=== PATIENT | male | born 1975 | race Caucasian/White ===

== ENCOUNTER → 2020-02-02 | Outpatient (CLI) | payer BC | END | disposition home or self-care (01) | LOC: LABWHC1 11:23 | PROVIDERS: ATTEND Emergency Medicine | DX: Z20.828 Contact with and (suspected) exposure to other viral communicable diseases (principal) | CPT/HCPCS: U0003; C9803 ==

== ENCOUNTER → 2021-10-15 | Outpatient (CLI) | payer BC ==
--- NOTE | 2021-10-15 21:16 | CT ---
EXAMINATION TYPE: CT abdomen pelvis wo con DATE OF EXAM: 10/15/2021 COMPARISON: CT dated 09/11/2011 HISTORY: left flank pain CT DLP: 1619 mGycm Automated exposure control for dose reduction was used. TECHNIQUE: Helical acquisition of images was performed from the lung bases through the pelvis. FINDINGS: LUNG BASES: No significant abnormality is appreciated. LIVER/GB: Enlarged liver measuring 23.6 cm with signs of hepatic steatosis. No definite hepatic focal lesion by this unenhanced CT scan. Unremarkable gallbladder. PANCREAS: No significant abnormality is seen. SPLEEN: No significant abnormality is seen. ADRENALS: No significant abnormality is seen. KIDNEYS: 7 mm obstructing stone is seen at the mid to lower portion of the left ureter causing proxim al left-sided hydroureter and hydronephrosis with left periureteric and left perinephric fat strandin g. Multiple bilateral millimetric nonobstructing renal calculi measuring up to 5 mm. No right-sided h ydroureter or hydronephrosis. Grossly unremarkable urinary bladder. Unremarkable prostate and seminal vesicles. FREE AIR: No free air is visualized RETROPERITONEAL ADENOPATHY: None visualized PELVIC ADENOPATHY: No pathologically enlarged lymph nodes. OSSEOUS STRUCTURES: No aggressive bone lesion. BOWEL: No significant abnormality is seen. OTHER: Scattered arterial atherosclerotic calcifications. No sizable ascites. Left fat-containing ing uinal hernia. IMPRESSION: 7 mm obstructing stone is seen at the mid to lower portion of the left ureter. Associated infection c annot be excluded, please correlate clinically and with urinalysis results. Further urology consultat ion can be considered. Bilateral nonobstructing renal calculi and other incidental findings as descri bed above. A [place] level critical message alert has been initiated for Toby Luciano MD via the [facility] Critical Results System on 10/15/2021 9:13 PM. This message alert has been sent to Toby Luciano MD via the preferences provided by the clinician for the receipt of Radiology Critical Findings. Message ID [id number].
== END | disposition home or self-care (01) ==
LOC: RADCTMAIN 15:49
PROVIDERS: ATTEND Family Medicine
DX: N20.2 Calculus of kidney with calculus of ureter (principal)
CPT/HCPCS: 74176

== ENCOUNTER → 2021-10-16 | Outpatient (CLI) | payer BC ==
--- NOTE | 2021-10-16 12:00 | XR ---
EXAMINATION TYPE: XR KUB DATE OF EXAM: 10/16/2021 COMPARISON: CT scan 10/15/2021 HISTORY: Pain TECHNIQUE: One view abdominal series FINDINGS: The osseous structures are intact. The bowel gas pattern is nonspecific. Right kidney: Question 2 mm punctate calcification overlying the lower Left kidney approximately 4 calcifications overlying the mid and lower aspect and additional calcific ation overlying the 12th rib near the mid to upper pole. Largest measures 4 mm. Pelvis: There are multiple calculi in the pelvis which are nonspecific. 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 Hypertrophic degenerative change of the spine. A 7 mm left u pper hemipelvis calcification likely corresponds to the CT ureteral stone. IMPRESSION: 1. Bilateral medical devices as discussed above. 2. Numerous nonspecific calcifications in the lower pelvis. However, there is a 7 mm calcification in the left upper pelvis likely corresponds to the CT scan abnormality and ureteral calculus.
== END | disposition home or self-care (01) ==
LOC: RADXRMAIN 11:43
PROVIDERS: ATTEND Urology
DX: N20.1 Calculus of ureter (principal)
CPT/HCPCS: 74018

== ENCOUNTER → 2021-11-01 | Outpatient (CLI) | payer BC ==
--- NOTE | 2021-11-01 08:30 | XR ---
KUB HISTORY: Left-sided kidney stones, N 20.1 Frontal KUB and 2 images correlated prior exam 10/16/2021, CT 10/15/2021 There are calcifications within the left kidney as noted on prior exams. Multiple calcifications with in the pelvis are again seen. The previous identified ureteral calcification is not identified on the left with certainty. IMPRESSION: There may been interval passage of patient's left ureteral calcification. Left-sided neph rolithiasis.
== END | disposition home or self-care (01) ==
LOC: RADXRMAIN 07:07
PROVIDERS: ATTEND Family Medicine
DX: N20.0 Calculus of kidney (principal)
CPT/HCPCS: 74018

== ENCOUNTER 2023-08-22 15:07 | Observation (INO) | payer BC ==
[2023-08-22] MEDS ORDERED: LORazepam 2 MG/ML INJ IV PRN ×2 (16:24)
--- NOTE | 2023-08-22 16:45 | ED ---
Alcohol HPI <Anisa Zimmerman - Last Filed: 08/22/23 20:36> - General Source: patient Mode of arrival: ambulatory Limitations: no limitations <Nicole Funk - Last Filed: 08/23/23 03:38> - General Chief Complaint: Alcohol Stated Complaint: ETOH Time Seen by Provider: 08/22/23 16:15 - History of Present Illness Initial Comments: 48-year-old male presenting with chief complaint of alcohol withdrawal. Patient is a daily drinker, normally drinks about 6 beers per day. His last drink was between 11 PM and 12 AM. Today the patient has been experiencing tremors, chills, sweating, nausea, abdominal discomfort. No chest pain or difficulty breathing. He is having some discomfort to the right flank as well, he has history of kidney stones. No dysuria or hematuria. (Nicole Funk) - Related Data Home Medications Medication Instructions Recorded Confirmed traMADol HCL 50 mg pe PO QID PRN 08/22/23 08/22/23 Allergies Allergy/AdvReac Type Severity Reaction Status Date / Time No Known Allergies Allergy Verified 08/22/23 17:41 Review of Systems ROS Other: All systems not noted in ROS Statement are negative. <Anisa Zimmerman Nichelle - Last Filed: 08/22/23 20:36> ROS Other: All systems not noted in ROS Statement are negative. <Nicole Funk - Last Filed: 08/23/23 03:38> ROS Statement: Those systems with pertinent positive or pertinent negative responses have been documented in the HPI. Past Medical History Past Medical History: Liver Disease Additional Past Medical History / Comment(s): Fatty liver, kidney stones History of Any Multi-Drug Resistant Organisms: None Reported Past Surgical History: Hernia Repair Additional Past Surgical History / Comment(s): hernia repair at Past Psychological History: No Psychological Hx Reported Smoking Status: Never smoker Past Alcohol Use History: Daily, Heavy Past Drug Use History: None Reported <Nicole Funk - Last Filed: 08/23/23 03:38> General Exam Limitations: no limitations General appearance: alert, anxious Head exam: Present: atraumatic, normocephalic Eye exam: Present: normal appearance, EOMI Neck exam: Present: normal inspection. Absent: meningismus Respiratory exam: Present: normal lung sounds bilaterally. Absent: respiratory distress, wheezes, rales, rhonchi, stridor Cardiovascular Exam: Present: regular rate, normal rhythm, normal heart sounds. Absent: systolic murmur, diastolic murmur, rubs, gallop, clicks Neurological exam: Present: alert, oriented X3 Psychiatric exam: Present: normal affect, normal mood Skin exam: Present: diaphoretic <Nicole Funk - Last Filed: 08/23/23 03:38> Course Vital Signs 08/22/23 08/22/23 08/22/23 15:18 16:42 18:00 Temperature 98.3 F Pulse Rate 80 92 93 Respiratory 18 20 20 Rate Blood Pressure 167/110 152/93 154/89 O2 Sat by Pulse 96 97 93 L Oximetry 08/22/23 21:02 Temperature Pulse Rate 90 Respiratory 18 Rate Blood Pressure 145/95 O2 Sat by Pulse 96 Oximetry Medical Decision Making - Lab Data Result diagrams: 08/22/23 16:42 08/22/23 17:39 <Anisa Zimmerman - Last Filed: 08/22/23 20:36> - Lab Data Result diagrams: 08/22/23 16:42 08/22/23 17:39 <Nicole Funk - Last Filed: 08/23/23 03:38> - Medical Decision Making Was pt. sent in by a medical professional or institution ([facility], HIGHWAY ENGINEERING TEACHER, urgent care, hospital, or group home...) When possible be specific @ -No Did you speak to anyone other than the patient for history (EMS, parent, family, police, friend...)? What history was obtained from this source @ - at bedside Did you review nursing and triage notes (agree or disagree)? Why? @ -I reviewed and agree with nursing and triage notes Were old charts reviewed (outside hosp., previous admission, EMS record, old EKG, old radiological studies, urgent care reports/EKG's, group home records)? Report findings @ -No old charts were reviewed Differential Diagnosis (chest pain, altered mental status, abdominal pain women, abdominal pain men, vaginal bleeding, weakness, fever, dyspnea, syncope, headach e, dizziness, GI bleed, back pain, seizure, CVA, palpatations, mental health, musculoskeletal)? @ -Not applicable EKG interpreted by me (3pts min.). @ -As above X-rays interpreted by me (1pt min.). @ -None done CT interpreted by me (1pt min.). @ -CT shows multiple small bilateral intrarenal calculi, without evidence of ureteral stones or hydronephrosis. Hepatosplenomegaly. Mildly distended gallbladder, without evidence for calcified stones or inflammatory changes. Other chronic and likely incidental findings. U/S interpreted by me (1pt. min.). @ -None done What testing was considered but not performed or refused? (CT, X-rays, U/S, labs)? Why? @ -None What meds were considered but not given or refused? Why? @ -None Did you discuss the management of the patient with other professionals (professionals i.e. , PA, HIGHWAY ENGINEERING TEACHER, lab, RT, psych nurse, drug abuse social worker, warehouse order picker, teacher, access control officer, caser shoe parts)? Give summary @ -I spoke with Dr. Roberts who accepted admission Was smoking cessation discussed for >3mins.? @ -No Was critical care preformed (if so, how long)? @ -No Were there social determinants of health that impacted care today? How? (Homelessness, low income, unemployed, alcoholism, drug addiction, transportation, low edu. Level, literacy, decrease access to med. care, fci, rehab)? @ -No Was there de-escalation of care discussed even if they declined (Discuss DNR or withdrawal of care, Hospice)? DNR status @ -No What co-morbidities impacted this encounter? (DM, HTN, Smoking, COPD, CAD, Cancer, CVA, ARF, Chemo, Hep., AIDS, mental health diagnosis, sleep apnea, morbid obesity)? @ -None Was patient admitted / discharged? Hospital course, mention meds given and route, prescriptions, significant lab abnormalities, going to OR and other pertinent info. @ -48-year-old male presenting with chief complaint of alcohol withdrawal. Last drink between 11 PM and 12 AM. Drinks 6 beers daily. History and physical exam are conducted. CIWA score is 9. Bilirubin 1.5 AST 124 ALT 75, no abdominal pain. Likely due to the patient's alcohol use disorder. Patient is complaining of some right-sided flank pain. Urine shows small blood. He has history of kidney stones. CT shows evidence of renal stones. Patient is placed on CIWA protocol will be admitted for alcohol withdrawal. Patient is agreeable with this plan. I discussed this case with my attending Dr. Zimmerman Undiagnosed new problem with uncertain prognosis? @ -No Drug Therapy requiring intensive monitoring for toxicity (Heparin, Nitro, Insulin, Cardizem)? @ -No Were any procedures done? @ -No Diagnosis/symptom? @ -Alcohol withdrawal syndrome Acute, or Chronic, or Acute on Chronic? @ -Acute Uncomplicated (without systemic symptoms) or Complicated (systemic symptoms)? @ -Complicated Side effects of treatment? @ -No Exacerbation, Progression, or Severe Exacerbation? @ -No Poses a threat to life or bodily function? How? (Chest pain, USA, ND, pneumonia, PE, COPD, DKA, ARF, appy, cholecystitis, CVA, Diverticulitis, Homicidal, Suicidal, threat to staff... and all critical care pts) @ -Yes (Nicole Funk) - Lab Data Lab Results 08/22/23 08/22/23 08/22/23 Range/Units 16:42 16:42 17:39 WBC 9.7 (3.8-10.6) k/uL RBC 4.61 (4.30-5.90) m/uL Hgb 16.0 (13.0-17.5) gm/dL Hct 46.4 (39.0-53.0) % MCV 100.6 H (80.0-100.0) fL MCH 34.6 (25.0-35.0) pg MCHC 34.4 (31.0-37.0) g/dL RDW 12.2 (11.5-15.5) % Plt Count 179 (150-450) k/uL MPV 7.8 Neutrophils % 69 % Lymphocytes % 23 % Monocytes % 5 % Eosinophils % 2 % Basophils % 1 % Neutrophils # 6.7 (1.3-7.7) k/uL Lymphocytes # 2.2 (1.0-4.8) k/uL Monocytes # 0.5 (0-1.0) k/uL Eosinophils # 0.1 (0-0.7) k/uL Basophils # 0.1 (0-0.2) k/uL Sodium 140 (137-145) mmol/L Potassium 4.6 (3.5-5.1) mmol/L Chloride 107 (98-107) mmol/L Carbon Dioxide 26 (22-30) mmol/L Anion Gap 7 mmol/L BUN 11 (9-20) mg/dL Creatinine 0.44 L (0.66-1.25) mg/dL Est GFR (CKD-EPI)AfAm >90 (>60 ml/min/1.73 sqM) Est GFR (CKD-EPI)NonAf >90 (>60 ml/min/1.73 sqM) Glucose 90 (74-99) mg/dL Calcium 8.6 (8.4-10.2) mg/dL Magnesium 1.8 (1.6-2.3) mg/dL Total Bilirubin 1.5 H (0.2-1.3) mg/dL AST 124 H (17-59) U/L ALT 75 H (4-49) U/L Alkaline Phosphatase 115 (38-126) U/L Total Protein 7.4 (6.3-8.2) g/dL Albumin 4.0 (3.5-5.0) g/dL Urine Color Yellow Urine Appearance Clear (Clear) Urine pH 8.5 H (5.0-8.0) Ur Specific [place] 1.023 (1.001-1.035) Urine Protein 1+ H (Negative) Urine Glucose (UA) Negative (Negative) Urine Ketones Negative (Negative) Urine Blood Small H (Negative) Urine Nitrite Negative (Negative) Urine Bilirubin Negative (Negative) Urine Urobilinogen <2.0 (<2.0) mg/dL Ur Leukocyte Esterase Negative (Negative) Urine RBC 38 H (0-5) /hpf Urine WBC 3 (0-5) /hpf Ur Squamous Epith Cells <1 (0-4) /hpf Urine Mucus Rare H (None) /hpf Urine Opiates Screen Not Detected (NotDetected) Ur Oxycodone Screen Not Detected (NotDetected) Urine Methadone Screen Not Detected (NotDetected) Ur Barbiturates Screen Not Detected (NotDetected) U Tricyclic Antidepress Not Detected (NotDetected) Ur Phencyclidine Scrn Not Detected (NotDetected) Ur Amphetamines Screen Not Detected (NotDetected) U Methamphetamines Scrn Not Detected (NotDetected) U Benzodiazepines Scrn Not Detected (NotDetected) Urine Cocaine Screen Not Detected (NotDetected) U Marijuana (THC) Screen Not Detected (NotDetected) Disposition <Anisa Zimmerman - Last Filed: 08/22/23 20:36> Time of Disposition: 20:28 <Nicole Funk - Last Filed: 08/23/23 03:38> Clinical Impression: Alcohol withdrawal syndrome Disposition: ADMITTED IP TO THIS HOSP Condition: Fair
[2023-08-22] MEDS: ONDANSETRON 4 MG/2 ML VIAL IVP STA (16:54)
[2023-08-22] MEDS: THIAMINE 100 MG/ML 2 ML VIAL IM STA (16:57)
[2023-08-22] MEDS: LORazepam 2 MG/ML INJ IV PRN (16:57)
[2023-08-22 17:22] LABS: Basophils # (A) 0.1 k/uL (0-0.2); Basophils % (A) 1 %; Eosinophils # (A) 0.1 k/uL (0-0.7); Eosinophils % (A) 2 %; HCT 46.4 % (39.0-53.0); Lymphocytes # (A) 2.2 k/uL (1.0-4.8); Lymphocytes % (A) 23 %; MCH 34.6 pg (25.0-35.0); MCHC 34.4 g/dL (31.0-37.0); MCV 100.6 fL (80.0-100.0); Mean Platelet Volume 7.8; Monocytes # (A) 0.5 k/uL (0-1.0); Monocytes % (A) 5 %; Neutrophils # (A) 6.7 k/uL (1.3-7.7); Neutrophils % (A) 69 %; Platelet Count 179 k/uL (150-450); RBC 4.61 m/uL (4.30-5.90); RDW 12.2 % (11.5-15.5); WBC 9.7 k/uL (3.8-10.6)
[2023-08-22 17:41] LABS: Amphetamine Screen,Urine Not Detected (NotDetected); Barbiturate Screen,Urine Not Detected (NotDetected); Benzodiazepines Screen,Urine Not Detected (NotDetected); Cocaine Screen,Urine Not Detected (NotDetected); Methadone Screen, Urine Not Detected (NotDetected); Opiate Screen,Urine Not Detected (NotDetected); Oxycodone Screen, Urine Not Detected (NotDetected); Phencyclidine Screen,Urine Not Detected (NotDetected); Tricyclic Antidepressant,Urine Not Detected (NotDetected); Urn Cannabinoid Scrn Not Detected (NotDetected)
[2023-08-22 17:58] LABS: Appearance,Urine Clear (Clear); Bilirubin,Urine Negative (Negative); Blood,Urine Small (Negative); Color,Urine Yellow; Glucose,Urine (UA) Negative (Negative); Ketones,Urine Negative (Negative); Leukocyte Esterase,Urine Negative (Negative); Mucus,Urine Rare /hpf; Nitrite,Urine Negative (Negative); PH, Urine 8.5 (5.0-8.0); Protein,Urine 1+ (Negative); RBC,Urine 38 /hpf (0-5); Specific Gravity,Urine 1.023 (1.001-1.035); Squamous Epithelial Cell,Urine <1 /hpf (0-4); Urobilinogen,Urine <2.0 mg/dL (<2.0); WBC,Urine 3 /hpf (0-5)
[2023-08-22 18:06] LABS: ALT 75 U/L (4-49); AST 124 U/L (17-59); African American GFR (CKD) >90 (>60 ml/min/1.73 sqM); Alkaline Phosphatase 115 U/L (38-126); Anion Gap 7 mmol/L; Blood Urea Nitrogen 11 mg/dL (9-20); Calcium 8.6 mg/dL (8.4-10.2); Carbon Dioxide 26 mmol/L (22-30); Chloride 107 mmol/L (98-107); Glucose 90 mg/dL (74-99); Magnesium 1.8 mg/dL (1.6-2.3); Non-African American GFR(CKD) >90 (>60 ml/min/1.73 sqM); Sodium 140 mmol/L (137-145); Total Bilirubin 1.5 mg/dL (0.2-1.3); Total Protein 7.4 g/dL (6.3-8.2)
[2023-08-22 18:12] LABS: Potassium 4.6 mmol/L (3.5-5.1)
[2023-08-22] MEDS ORDERED: KETOROLAC 15 MG/ML 1 ML VIAL IVP PRN (20:26)
[2023-08-22] MEDS ORDERED: ONDANSETRON 4 MG/2 ML VIAL IVP PRN (20:26)
[2023-08-22] MEDS ORDERED: NALOXONE 0.4 MG/ML 1 ML VIAL IV PRN (20:26)
[2023-08-22] MEDS: SODIUM CHLORIDE 0.9% 1,000 ML IV SCH (20:58)
--- NOTE | 2023-08-22 22:48 | CT ---
EXAMINATION TYPE: CT abdomen pelvis wo con CT DLP: 1737.5 mGycm, Automated exposure control for dose reduction was used. DATE OF EXAM: 08/22/2023 8:15 PM COMPARISON: 10/15/2021 CLINICAL INDICATION:Male, 48 years old with history of R flank pain; Bilateral flank pain- more sever e on right side TECHNIQUE: Axial CT of the abdomen and pelvis. Sagittal and coronal reformats were created on a [employer] workstation. Contrast used: mL of , (none if empty) Oral contrast used: without Oral Contrast (none if empty) FINDINGS: LOWER CHEST: Lung bases are clear. Heart size is normal. ABDOMEN LIVER: Liver appears enlarged, the right lobe measures 24.3 cm in length. Otherwise unremarkable pare nchyma GALLBLADDER AND BILE DUCTS: Gallbladder appears mildly distended, otherwise unremarkable without calc ified stones seen. No biliary ductal dilatation. PANCREAS: Unremarkable. SPLEEN: Mildly enlarged measuring up to 14.3 cm in greatest dimension. Otherwise unremarkable. ADRENAL GLANDS: Unremarkable. KIDNEYS AND URETERS: There are several small bilateral renal calculi, the largest 8 mm in the left lo wer pole. On the right, no clear evidence of ureteral calculi or hydronephrosis. On the left, there i s no visualized ureteral calculus or hydronephrosis. PELVIS BLADDER: Mildly distended without intraluminal calculi seen. REPRODUCTIVE: Unremarkable prostate. Calcified phleboliths are also present in the pelvis. ABDOMEN & PELVIS STOMACH AND BOWEL: Stomach and small bowel are nondistended, no evidence of obstruction. The append ix appears within normal limits. There is some stool and gas seen throughout the colon with no focal acute abnormality shown. PERITONEUM/RETROPERITONEUM: No evidence of pneumoperitoneum or free fluid. VASCULATURE: Mild atherosclerotic calcifications are present throughout the abdominal aorta and its b ranches. No evidence of aortic aneurysm. LYMPH NODES: No enlarged nodes by CT size criteria. SOFT TISSUE/ABDOMINAL WALL: No acute abnormality. Moderate-sized left and small right fat-containing inguinal hernias. Tiny fat-containing umbilical hernia. MUSCULOSKELETAL: No acute osseous abnormalities. Lhac-xe-arfezyoa degenerative changes of the spine. IMPRESSION: 1. Multiple small bilateral intrarenal calculi, without evidence of ureteral stones or hydronephrosi s. 2. Hepatosplenomegaly. 3. Mildly distended gallbladder, without evidence for calcified stones or inflammatory changes. 4. Other chronic and likely incidental findings, as described above.
[2023-08-22] MEDS ORDERED: traMADol 50 MG TAB PO PRN (22:49)
[2023-08-23] MEDS: ENOXAPARIN 40 MG/0.4 ML SYRINGE SQ SCH (07:39)
[2023-08-23] MEDS: THIAMINE 100 MG TAB PO SCH (07:39)
[2023-08-23 10:00] LABS: ALT 68 U/L (10-49); AST 94 U/L (14-35); Albumin/Globulin Ratio 1.54 Ratio (1.60-3.17); Alkaline Phosphatase 100 U/L (41-126); BUN/Creat Ratio 15.86 Ratio (12.00-20.00); Blood Urea Nitrogen 11.1 mg/dL (9.0-27.0); Carbon Dioxide 24.5 mmol/L (21.6-31.8); Chloride 102 mmol/L (96-109); Globulin 2.6 g/dL (1.6-3.3); Glucose 104 mg/dL (70-110); Potassium 3.8 mmol/L (3.5-5.5); Sodium 139 mmol/L (135-145); Total Bilirubin 1.3 mg/dL (0.3-1.2); Total Protein 6.6 g/dL (6.2-8.2)
[2023-08-23 10:53] LABS: Basophils # (A) 0.05 X 10*3/uL (0.00-0.10); Basophils % (A) 0.6 %; Eosinophils # (A) 0.26 X 10*3/uL (0.04-0.35); HCT 42.5 % (39.6-50.0); HGB 15.1 g/dL (13.0-17.0); Lymphocytes # (A) 2.21 X 10*3/uL (0.90-5.00); Lymphocytes % (A) 25.9 %; MCH 35.3 pg (27.0-32.0); MCHC 35.5 g/dL (32.0-37.0); MCV 99.3 FL (80.0-97.0); Mean Platelet Volume 11.3 FL (9.5-12.2); Monocytes # (A) 0.66 X 10*3/uL (0.20-1.00); Monocytes % (A) 7.7 %; NRBC Per 100 WBC 0 X 10*3/uL (0.00-0.01); Neutrophils # (A) 5.34 X 10*3/uL (1.80-7.70); Neutrophils % (A) 62.6 %; Platelet Count 87 X 10*3/uL (140-440); RBC 4.28 X 10*6/uL (4.40-5.60); RBC Morphology Normal (Normal); WBC 8.54 X 10*3/uL (4.50-10.00)
--- NOTE | 2023-08-23 14:24 | P.HPIM ---
History of Present Illness H&P Date: 08/23/23 Chief Complaint: Alcohol intoxication 48-year-old male, with history of fatty liver disease, kidney stones, alcohol abuse, presenting with chief complaint of alcohol withdrawal. Patient is a daily drinker, normally drinks about 6 beers per day. His last drink was between 11 PM and 12 AM. Today the patient has been experiencing tremors, chills, sweating, nausea, abdominal discomfort. No chest pain or difficulty breathing. He is having some discomfort to the right flank as well, he has history of kidney stones. No dysuria or hematuria. Blood work completed in ED reveals a WBC of 9.7, hemoglobin of 16 and platelet count of 179, sodium 140, potassium 4.6, BUNs/creatinine of 11/0.44, total bilirubin of 1.5 AST/ALT elevated at 120/75, UA is positive for blood and RBCs Review of Systems REVIEW OF SYSTEMS: CONSTITUTIONAL: No fever, no malaise, no fatigue. HEENT: No recent visual problems or hearing problems. Denied any sore throat. CARDIOVASCULAR: No chest pain, orthopnea, PND, no palpitations, no syncope. PULMONARY: No shortness of breath, no cough, no hemoptysis. GASTROINTESTINAL: No diarrhea, no nausea, no vomiting, no abdominal pain. NEUROLOGICAL: No headaches, no weakness, no numbness. HEMATOLOGICAL: Denies any bleeding or petechiae. GENITOURINARY: Denies any burning micturition, frequency, or urgency. MUSCULOSKELETAL/RHEUMATOLOGICAL: Denies any joint pain, swelling, or any muscle pain. ENDOCRINE: Denies any polyuria or polydipsia. The rest of the 14-point review of systems is negative. Past Medical History Past Medical History: Liver Disease Additional Past Medical History / Comment(s): Fatty liver, kidney stones History of Any Multi-Drug Resistant Organisms: None Reported Past Surgical History: Hernia Repair Additional Past Surgical History / Comment(s): hernia repair at Past Anesthesia/Blood Transfusion Reactions: No Reported Reaction Past Psychological History: No Psychological Hx Reported Smoking Status: Never smoker Past Alcohol Use History: Daily, Heavy Past Drug Use History: None Reported Medications and Allergies Home Medications Medication Instructions Recorded Confirmed Type traMADol HCL 50 mg pe PO QID PRN 08/22/23 08/22/23 History Allergies Allergy/AdvReac Type Severity Reaction Status Date / Time No Known Allergies Allergy Verified 08/22/23 17:41 Physical Exam Vitals: Vital Signs Temp Pulse Pulse Resp BP BP Pulse Ox 08/23/23 07:57 97.7 F 86 19 159/105 94 L 08/23/23 02:00 97.6 F 87 16 160/100 94 L 08/22/23 21:49 98.0 F 95 16 161/92 94 L 08/22/23 21:02 90 18 145/95 96 08/22/23 18:00 93 20 154/89 93 L 08/22/23 16:42 92 20 152/93 97 08/22/23 15:18 98.3 F 80 18 167/110 96 Intake and Output 08/22/23 08/23/23 08/23/23 22:59 06:59 14:59 Intake Total 120 590 Balance 120 590 Intake: Oral 120 590 Other: Voiding Method Toilet # Voids 2 Weight 136.078 kg General appearance: alert, anxious Head exam: Present: atraumatic, normocephalic Eye exam: Present: normal appearance, EOMI Neck exam: Present: normal inspection. Absent: meningismus Respiratory exam: Present: normal lung sounds bilaterally. Absent: respiratory distress, wheezes, rales, rhonchi, stridor Cardiovascular Exam: Present: regular rate, normal rhythm, normal heart sounds. Absent: systolic murmur, diastolic murmur, rubs, gallop, clicks Neurological exam: Present: alert, oriented X3 Psychiatric exam: Present: normal affect, normal mood Skin exam: Unremarkable Results CBC & Chem 7: 08/23/23 04:25 08/23/23 04:25 Labs: Abnormal Lab Results - Last 24 Hours (Table) 08/22/23 08/22/23 08/22/23 Range/Units 16:42 16:42 17:39 RBC (4.40-5.60) X 10*6/uL MCV 100.6 H (80.0-100.0) fL MCH (27.0-32.0) pg Plt Count (140-440) X 10*3/uL Anion Gap (4.00-12.00) mmol/L Creatinine 0.44 L (0.66-1.25) mg/dL Total Bilirubin 1.5 H (0.2-1.3) mg/dL AST 124 H (17-59) U/L ALT 75 H (4-49) U/L Albumin/Globulin Ratio (1.60-3.17) Ratio Urine pH 8.5 H (5.0-8.0) Urine Protein 1+ H (Negative) Urine Blood Small H (Negative) Urine RBC 38 H (0-5) /hpf Urine Mucus Rare H (None) /hpf 08/23/23 08/23/23 Range/Units 04:25 04:25 RBC 4.28 L (4.40-5.60) X 10*6/uL MCV 99.3 H (80.0-100.0) fL MCH 35.3 H (27.0-32.0) pg Plt Count 87 L (140-440) X 10*3/uL Anion Gap 12.50 H (4.00-12.00) mmol/L Creatinine (0.66-1.25) mg/dL Total Bilirubin 1.3 H (0.2-1.3) mg/dL AST 94 H (17-59) U/L ALT 68 H (4-49) U/L Albumin/Globulin Ratio 1.54 L (1.60-3.17) Ratio Urine pH (5.0-8.0) Urine Protein (Negative) Urine Blood (Negative) Urine RBC (0-5) /hpf Urine Mucus (None) /hpf Thrombosis Risk Factor Assmnt - Choose All That Apply Any of the Below Risk Factors Present?: Yes Each Factor Represents 1 point: Age 41-60 years, Obesity (BMI >25) Other Risk Factors: No Other congenital or acquired thrombophilia - If yes, enter type in comment: No Thrombosis Risk Factor Assessment Total Risk Factor Score: 2 Thrombosis Risk Factor Assessment Level: Low Risk Assessment and Plan Assessment: 1. Alcohol abuse/withdrawal --Patient has been placed on CIWA protocol with Ativan -IV fluids normal saline at rate of 125 cc an hour -Remains on thiamine and folic acid 2. Elevated liver enzymes; AST/ALT elevated at 124/75 with total bilirubin of 1.5; related to chronic alcohol use/fatty liver disease -- Patient counseled to quit drinking 3. Obesity; counseling done for need for weight reduction 4. Osteoarthritis/chronic pain; patient takes Ultram 50 mg 4 times daily as needed DVT prophylaxis; SCDs/Lovenox CODE STATUS; full code
[2023-08-23] MEDS: IBUPROFEN 400 MG TAB PO PRN (21:07)
[2023-08-24 02:12] VITALS: RESP 18
[2023-08-24 08:30] VITALS: BP 139/95; PULSE 85; TEMP 97.4
== END 2023-08-24 13:29 | disposition home or self-care (01) ==
LOC: EC 15:07 → 5NMEDONC 20:22
PROVIDERS: ADMIT Internal Medicine; ATTEND Internal Medicine
DX: F10.929 Alcohol use, unspecified with intoxication, unspecified (principal); Z87.442 Personal history of urinary calculi; R79.89 Other specified abnormal findings of blood chemistry; E66.9 Obesity, unspecified; M19.90 Unspecified osteoarthritis, unspecified site; G89.29 Other chronic pain
CPT/HCPCS: 96361 ×2; 96372 ×3; 96374; 99285; 36415; 80053 ×2; 83735; 85025 ×2; 81001; 80306; 74176; G0378 ×3; J2060; J3411; J2405; J1650 ×2

== ENCOUNTER 2023-10-31 07:17 | Emergency (ER) | payer BC ==
[2023-10-31 08:20] VITALS: TEMP 98.2
[2023-10-31] MEDS: KETOROLAC 15 MG/ML 1 ML VIAL IVP STA ×2 (08:25→08:33)
[2023-10-31] MEDS: SODIUM CHLORIDE 0.9% 500 ML 500 ML IV STA (08:26)
[2023-10-31 08:28] LABS: Basophils # (A) 0.1 k/uL (0-0.2); Basophils % (A) 1 %; Eosinophils # (A) 0.2 k/uL (0-0.7); Eosinophils % (A) 4 %; HGB 15.1 gm/dL (13.0-17.5); Lymphocytes % (A) 30 %; MCH 34.8 pg (25.0-35.0); MCHC 34.2 g/dL (31.0-37.0); MCV 101.6 fL (80.0-100.0); Mean Platelet Volume 7.3; Monocytes # (A) 0.4 k/uL (0-1.0); Monocytes % (A) 6 %; Neutrophils # (A) 4.1 k/uL (1.3-7.7); Neutrophils % (A) 59 %; Platelet Count 158 k/uL (150-450); RBC 4.33 m/uL (4.30-5.90); WBC 6.9 k/uL (3.8-10.6)
[2023-10-31 08:46] LABS: ALT 129 U/L (4-49); AST 168 U/L (17-59); African American GFR (CKD) >90 (>60 ml/min/1.73 sqM); Albumin 3.9 g/dL (3.5-5.0); Alcohol <10 mg/dL; Alkaline Phosphatase 81 U/L (38-126); Amylase 50 U/L (30-110); Anion Gap 8 mmol/L; Blood Urea Nitrogen 11 mg/dL (9-20); Calcium 9.1 mg/dL (8.4-10.2); Carbon Dioxide 25 mmol/L (22-30); Chloride 104 mmol/L (98-107); Glucose 109 mg/dL (74-99); Lipase 114 U/L (23-300); Non-African American GFR(CKD) >90 (>60 ml/min/1.73 sqM); Potassium 3.3 mmol/L (3.5-5.1); Sodium 137 mmol/L (137-145); Total Bilirubin 2.6 mg/dL (0.2-1.3)
--- NOTE | 2023-10-31 08:46 | ED ---
General Adult HPI - General Chief complaint: Urogenital Stated complaint: High BP Time Seen by Provider: 10/31/23 07:30 Source: patient, RN notes reviewed, old records reviewed Mode of arrival: ambulatory Limitations: no limitations - History of Present Illness Initial comments: This is a 48-year-old male who presents to the emergency department complaining that as of this morning he started having hematuria and some flank pain. Patient states he has a history of kidney stones. Patient also states he is a heavy drinker and been drinking quite a bit last couple of days. Patient denies any abdominal pain. Patient states he has bilateral kidney pain but he states he chronically has pain in his back in that area. Patient denies any injury or trauma. Patient denies any vomiting the last day or 2. Patient denies any fever or chills. - Related Data Home Medications Medication Instructions Recorded Confirmed traMADol HCL 50 mg pe PO QID PRN 08/22/23 08/22/23 Previous Rx's Medication Instructions Recorded Thiamine [Vitamin B-1] 100 mg PO DAILY #30 tab 08/24/23 Ketorolac [Toradol] 10 mg PO Q8HR #15 tab 10/31/23 Sulfamethox-Tmp 800-160Mg [Bactrim 1 each PO Q12HR #14 tab 10/31/23 DS 800-160 mg] Tamsulosin [Flomax] 0.4 mg PO DAILY #10 cap 10/31/23 Allergies Allergy/AdvReac Type Severity Reaction Status Date / Time No Known Allergies Allergy Verified 08/22/23 17:41 Review of Systems ROS Statement: Those systems with pertinent positive or pertinent negative responses have been documented in the HPI. ROS Other: All systems not noted in ROS Statement are negative. Past Medical History Past Medical History: Hypertension, Liver Disease Additional Past Medical History / Comment(s): Fatty liver, kidney stones History of Any Multi-Drug Resistant Organisms: None Reported Past Surgical History: Hernia Repair Additional Past Surgical History / Comment(s): hernia repair at Past Anesthesia/Blood Transfusion Reactions: No Reported Reaction Past Psychological History: No Psychological Hx Reported Smoking Status: Never smoker Past Alcohol Use History: Daily, Heavy Past Drug Use History: None Reported General Exam - General Exam Comments Initial Comments: GENERAL: Patient is well-developed and well-nourished. Patient is nontoxic and well- hydrated and is in no acute distress. ENT: Neck is soft and supple. No significant lymphadenopathy is noted. Oropharynx is clear. Moist mucous membranes. Neck has full range of motion without eliciting any pain. EYES: The sclera were anicteric and conjunctiva were pink and moist. Extraocular movements were intact and pupils were equal round and reactive to light. Eyelids were unremarkable. PULMONARY: Unlabored respirations. Good breath sounds bilaterally. No audible rales rhonchi or wheezing was noted. CARDIOVASCULAR: There is a regular rate and rhythm without any murmurs gallops or rubs. ABDOMEN: Soft and nontender with normal bowel sounds. SKIN: Skin is clear with no lesions or rashes and otherwise unremarkable. NEUROLOGIC: Patient is alert and oriented x3. Cranial nerves II through XII are grossly intact. Motor and sensory are also intact. Normal speech, volume and content. Symmetrical smile. MUSCULOSKELETAL: Normal extremities with adequate strength and full range of motion. No lower extremity swelling or edema. No calf tenderness. LYMPHATICS: No significant lymphadenopathy is noted PSYCHIATRIC: Normal psychiatric evaluation. Limitations: no limitations Course Vital Signs 10/31/23 10/31/23 10/31/23 07:21 08:18 09:00 Temperature 98 F 98.2 F Pulse Rate 77 77 71 Respiratory 20 14 14 Rate Blood Pressure 161/99 130/83 130/77 O2 Sat by Pulse 94 L 93 L Oximetry Medical Decision Making - Medical Decision Making Was pt. sent in by a medical professional or institution ([facility], CARD PAINTER, urgent care, hospital, or [facility]...) When possible be specific @ -No Did you speak to anyone other than the patient for history (EMS, parent, family, police, friend...)? What history was obtained from this source @ -No Did you review nursing and triage notes (agree or disagree)? Why? @ -I reviewed and agree with nursing and triage notes Were old charts reviewed (outside hosp., previous admission, EMS record, old EKG, old radiological studies, urgent care reports/EKG's, [facility] records)? Report findings @ -I reviewed the prior CAT scan from a previous visit and compared to today's CAT scan the stone it was in the kidney is now in the ureter on the left side Differential Diagnosis? @ -Differential Abdominal Pain Men: Appendicitis, cholecystitis, diverticulosis, ischemic bowel, pancreatitis, hepatitis, UTI, gastroenteritis, AAA, incarcerated hernia, bowel obstruction, constipation, inflammatory bowel, hepatitis, peptic ulcer disease, splenic infarction, perforated viscus, testicular torsion, this is not meant to be an all-inclusive list EKG interpreted by me (3pts min.). @ -As above X-rays interpreted by me (1pt min.). @ -None done CT interpreted by me (1pt min.). @ -CT scan shows a 8 mm stone in the left ureter it is the proximal ureter. There does not appear to be any hydronephrosis at this time. U/S interpreted by me (1pt. min.). @ -None done What testing was considered but not performed or refused? (CT, X-rays, U/S, labs)? Why? @ -None What meds were considered but not given or refused? Why? @ -None Did you discuss the management of the patient with other professionals (professionals i.e. , PA, CARD PAINTER, lab, RT, psych nurse, social organization professor, network operations center engineer, teacher, motorized squad commanding officer, case planner)? Give summary @ -No Was smoking cessation discussed for >3mins.? @ -No Was critical care preformed (if so, how long)? @ -No Were there social determinants of health that impacted care today? How? (Homelessness, low income, unemployed, alcoholism, drug addiction, transportation, low edu. Level, literacy, decrease access to med. care, alf, rehab)? @ -No Was there de-escalation of care discussed even if they declined (Discuss DNR or withdrawal of care, Hospice)? DNR status @ -No What co-morbidities impacted this encounter? (DM, HTN, Smoking, COPD, CAD, C ancer, CVA, ARF, Chemo, Hep., AIDS, mental health diagnosis, sleep apnea, morbid obesity)? @ -None Was patient admitted / discharged? Hospital course, mention meds given and route, prescriptions, significant lab abnormalities, going to OR and other pertinent info. @ -Patient's CT scan showed an 8 mm ureteral stone. Patient had hematuria and white cells in the ER. I did give the patient 2 g of Rocephin. Patient had no bacteria noted in the urine however. And have the patient follow-up with ur ology. Undiagnosed new problem with uncertain prognosis? @ -No Drug Therapy requiring intensive monitoring for toxicity (Heparin, Nitro, Insulin, Cardizem)? @ -No Were any procedures done? @ -No Diagnosis/symptom? @ -Kidney stone Acute, or Chronic, or Acute on Chronic? @ -Acute Uncomplicated (without systemic symptoms) or Complicated (systemic symptoms)? @ -Complicated Side effects of treatment? @ -No Exacerbation, Progression, or Severe Exacerbation? @ -No Poses a threat to life or bodily function? How? (Chest pain, [place], [place], pneumonia, PE, COPD, DKA, ARF, appy, cholecystitis, CVA, Diverticulitis, Homicidal, Suicidal, threat to staff... and all critical care pts) @ -No - Lab Data Result diagrams: 10/31/23 07:54 10/31/23 07:54 Lab Results 10/31/23 10/31/23 10/31/23 Range/Units 07:54 07:54 09:22 WBC 6.9 (3.8-10.6) k/uL RBC 4.33 (4.30-5.90) m/uL Hgb 15.1 (13.0-17.5) gm/dL Hct 44.0 (39.0-53.0) % MCV 101.6 H (80.0-100.0) fL MCH 34.8 (25.0-35.0) pg MCHC 34.2 (31.0-37.0) g/dL RDW 12.0 (11.5-15.5) % Plt Count 158 (150-450) k/uL MPV 7.3 Neutrophils % 59 % Lymphocytes % 30 % Monocytes % 6 % Eosinophils % 4 % Basophils % 1 % Neutrophils # 4.1 (1.3-7.7) k/uL Lymphocytes # 2.0 (1.0-4.8) k/uL Monocytes # 0.4 (0-1.0) k/uL Eosinophils # 0.2 (0-0.7) k/uL Basophils # 0.1 (0-0.2) k/uL Sodium 137 (137-145) mmol/L Potassium 3.3 L (3.5-5.1) mmol/L Chloride 104 (98-107) mmol/L Carbon Dioxide 25 (22-30) mmol/L Anion Gap 8 mmol/L BUN 11 (9-20) mg/dL Creatinine 0.61 L (0.66-1.25) mg/dL Est GFR (CKD-EPI)AfAm >90 (>60 ml/min/1.73 sqM) Est GFR (CKD-EPI)NonAf >90 (>60 ml/min/1.73 sqM) Glucose 109 H (74-99) mg/dL Calcium 9.1 (8.4-10.2) mg/dL Total Bilirubin 2.6 H (0.2-1.3) mg/dL AST 168 H (17-59) U/L ALT 129 H (4-49) U/L Alkaline Phosphatase 81 (38-126) U/L Total Protein 7.0 (6.3-8.2) g/dL Albumin 3.9 (3.5-5.0) g/dL Amylase 50 (30-110) U/L Lipase 114 (23-300) U/L Urine Color Dark Brown Urine Appearance Cloudy (Clear) Urine pH 6.0 (5.0-8.0) Ur Specific [place] 1.018 (1.001-1.035) Urine Protein 1+ H (Negative) Urine Glucose (UA) Negative (Negative) Urine Ketones Negative (Negative) Urine Blood Large H (Negative) Urine Nitrite Negative (Negative) Urine Bilirubin Negative (Negative) Urine Urobilinogen 4.0 (<2.0) mg/dL Ur Leukocyte Esterase Small H (Negative) Urine RBC >182 H (0-5) /hpf Urine WBC >182 H (0-5) /hpf Urine Mucus Few H (None) /hpf Urine Yeast (Budding) Occasional H (None) /hpf Serum Alcohol <10 mg/dL Disposition Clinical Impression: Kidney stone on left side Disposition: HOME SELF-CARE Condition: Good Instructions (If sedation given, give patient instructions): Kidney Stones (ED) Prescriptions: Sulfamethox-Tmp 800-160Mg [Bactrim DS 800-160 mg] 1 each PO Q12HR #14 tab Tamsulosin [Flomax] 0.4 mg PO DAILY #10 cap Ketorolac [Toradol] 10 mg PO Q8HR #15 tab Is patient prescribed a controlled substance at d/c from ED?: No Referrals: Toby Luciano MD [Primary Care Provider] - 1-2 days Aristeo Skinner MD [STAFF PHYSICIAN] - 1-2 days Time of Disposition: 12:22
[2023-10-31 09:59] LABS: Appearance,Urine Cloudy (Clear); Bilirubin,Urine Negative (Negative); Blood,Urine Large (Negative); Budding Yeast,Urine Occasional /hpf; Color,Urine Dark Brown; Glucose,Urine (UA) Negative (Negative); Ketones,Urine Negative (Negative); Leukocyte Esterase,Urine Small (Negative); Mucus,Urine Few /hpf; Nitrite,Urine Negative (Negative); Protein,Urine 1+ (Negative); RBC,Urine >182 /hpf (0-5); Specific Gravity,Urine 1.018 (1.001-1.035); WBC,Urine >182 /hpf (0-5)
--- NOTE | 2023-10-31 12:20 | CT ---
EXAMINATION TYPE: CT abdomen wo con CT DLP: 969.2 mGycm, Automated exposure control for dose reduction was used. DATE OF EXAM: 10/31/2023 11:11 AM COMPARISON: 08/22/2023 CLINICAL INDICATION:Male, 48 years old with history of Flank pain; flank pain, hematuria TECHNIQUE: Axial CT of the abdomen without contrast. Sagittal and coronal reformats were created on a separate workstation. Contrast used: mL of , (none if empty) Oral contrast used: without Oral Contrast (none if empty) FINDINGS: Included lung bases are clear. The heart size is upper normal. Liver appears enlarged measuring 21.9 cm on the right. Possible early cirrhotic morphology suggested by diffusely micronodular appearing margin. Gallbladder is again prominent without evidence of calcified stone. No biliary dilatation is seen. Spleen is enlarged at 14.9 cm, otherwise unremarkable. Adrenals are unremarkable. Stomach and small bowel are nondistended, there is no evidence of obstruction. Appendix is partially visualized and appears unremarkable. Fatty infiltration of the ileocecal valve. Visualized portions o f the colon demonstrate mild stool throughout without acute abnormality. No free fluid or free air in the abdomen. No enlarged abdominal lymph nodes. Mild/moderate calcification of the aorta and iliac arteries. No AAA. Small bilateral renal calculi appear largely similar to previous. The 8 mm calculus previously in the left lower pole appears to have migrated, now within a mildly prominent extrarenal pelvis close to t he UPJ but not definitely obstructing at this time. No right-sided hydronephrosis. No acute body wall soft tissue abnormality. No acute osseous abnormality. Mild degenerative changes of the spine and visualized SI joints. IMPRESSION: 1. Multiple nonobstructing bilateral renal calculi redemonstrated. 2. Since the prior study, an 8 mm left renal calculus has migrated into the renal pelvis near the UP J, however without definite obstruction of this time. 3. Hepatosplenomegaly.
[2023-10-31] MEDS: ACET/COD 300 MG/30 MG STARTER PACK 6 TAB BTL PO STA (12:45)
[2023-10-31] MEDS: cefTRIAXone IN SWFI 1,000 MG/10 ML SYRINGE IVP STA ×2 (12:48→12:49)
[2023-10-31 12:52] VITALS: RESP 16
[2023-10-31 13:15] VITALS: BP 140/88; PULSE 65
== END 2023-10-31 13:14 | disposition home or self-care (01) ==
LOC: EC 07:17
DX: N20.0 Calculus of kidney (principal); I10 Essential (primary) hypertension
CPT/HCPCS: 36415; 80053; 82150; 83690; 85025; 81001; 80320; 87086; 74150; 99284; 96374; 96375; 96361; J0696; J1885

== ENCOUNTER → 2024-07-26 | Outpatient (CLI) | payer BC ==
[2024-07-26 13:36] LABS: INR 1.1 (<1.2); Partial Thromboplastin Time 26.2 sec (22.0-30.0); Prothrombin Time 11.8 sec (10.0-12.5)
[2024-07-26 18:25] LABS: HCT 45.8 % (39.6-50.0); MCH 34.3 pg (27.0-32.0); MCHC 34.9 g/dL (32.0-37.0); MCV 98.1 FL (80.0-97.0); Mean Platelet Volume 9.7 FL (9.5-12.2); NRBC Per 100 WBC 0 X 10*3/uL (0.00-0.01); Platelet Count 177 X 10*3/uL (140-440); RBC 4.67 X 10*6/uL (4.40-5.60); RDW 12.2 % (11.5-14.5)
[2024-07-26 18:43] LABS: ALT 86 U/L (10-49); AST 96 U/L (14-35); Albumin 4.1 g/dL (3.8-4.9); Albumin/Globulin Ratio 1.28 Ratio (1.60-3.17); Alkaline Phosphatase 108 U/L (41-126); BUN/Creat Ratio 13.83 Ratio (12.00-20.00); Blood Urea Nitrogen 8.3 mg/dL (9.0-27.0); Calcium 9.3 mg/dL (8.7-10.3); Carbon Dioxide 24.6 mmol/L (21.6-31.8); Chloride 103 mmol/L (96-109); Globulin 3.2 g/dL (1.6-3.3); Glucose 119 mg/dL (70-110); Sodium 142 mmol/L (135-145); Total Protein 7.3 g/dL (6.2-8.2)
== END | disposition home or self-care (01) ==
LOC: LABPAT 12:24
PROVIDERS: ATTEND Orthopaedic Surgery
DX: Z01.812 Encounter for preprocedural laboratory examination (principal); E11.9 Type 2 diabetes mellitus without complications; M16.11 Unilateral primary osteoarthritis, right hip; Z22.322 Carrier or suspected carrier of Methicillin resistant Staphylococcus aureus
CPT/HCPCS: 80053; 83036; 85027; 85610; 85730; 86850; 86900; 86901; 87070

== ENCOUNTER → 2024-07-26 | Outpatient (CLI) | payer BC ==
--- NOTE | 2024-07-26 13:14 | US ---
EXAMINATION TYPE: US scrotum with doppler. DATE OF EXAM: 07/26/2024 COMPARISON: NONE CLINICAL INDICATION: Male, 49 years old with history of N50.89 OTHER SPECIFIED DISORDERS OF THE MALE GENIT; Lump left side. TECHNIQUE: Grayscale, color Doppler and spectral Doppler imaging of the scrotum. FINDINGS: EXAM MEASUREMENTS: TESTICLES: Right Testicle: 4.7 x 2.5 x 3.2 cm Left Testicle: 4.5 x 2.5 x 3.0 cm EPIDIDYMIS HEAD: Right Epididymis: 1.2 x .5 x .9 cm Left Epididymis: .9 x .6 x 1.0 cm Cystic area measuring .4 x .5 x .5 cm. Doppler performed to assess for testicular vascularity; good bilateral color flow and spectral wavefo deon are seen. Presence of hydroceles: No IMPRESSION: Incidental 4 mm left-sided epididymal cyst. No suspicious focal intratesticular mass. [facility], , 07/26/2024 1:12 PM
== END | disposition home or self-care (01) ==
LOC: RADUSWWP 12:43
PROVIDERS: ATTEND Family Medicine
DX: N50.89 Other specified disorders of the male genital organs (principal)
CPT/HCPCS: 76870; 93975

== ENCOUNTER 2024-08-03 10:44 | Day surgery (SDC) | payer BC ==
[2024-07-29 14:04] VITALS: BMI 42.3
[~2024-08-03 10:44] MED LIST: TRANEXAMIC 1,000 MG/100ML-NACL 1,000 MG in SALINE 1 100ML.BAG IV PRN; TRANEXAMIC 1,000 MG/100ML-NACL 1,000 MG in SALINE 1 100ML.BAG IVPB PRN
[2024-08-03] MEDS: IV FLUID CONTINUATION 1,000 ML IV ONE (11:05)
[2024-08-03] MEDS: KETOROLAC 15 MG/ML 1 ML VIAL IVP PRN (11:29)
[2024-08-03] MEDS: FAMOTIDINE 20 MG/2 ML VIAL IVP PRN (11:31)
[2024-08-03] MEDS: DEXAMETHASONE SOD PHOSPHATE 10 MG/ML 1 ML VIAL IV PRN (11:31)
[2024-08-03] MEDS: ONDANSETRON 4 MG/2 ML VIAL IVP PRN (11:31)
[2024-08-03] MEDS: ACETAMINOPHEN TAB 500 MG TAB PO PRN (11:38)
[2024-08-03] MEDS: oxyCODONE ER 10 MG TAB.ER.12H PO PRN (11:39)
[2024-08-03] MEDS: DOCUSATE 100 MG CAP PO PRN (11:39)
[2024-08-03] MEDS: LACTATED RINGERS 1,000 ML BAG IV STA (11:44)
[2024-08-03] MEDS: MIDAZOLAM 2 MG/2 ML VIAL IVP ONE (12:19)
[2024-08-03] MEDS: fentaNYL (PF) 50 MCG/ML 2 ML AMP IVP ONE (12:19)
[2024-08-03] MEDS ORDERED: LIDOCAINE 1% INJ 10MG/ML (20 ML MDV) ONE (12:26)
[2024-08-03] MEDS ORDERED: TRANEXAMIC 1,000 MG/100ML-NACL PREMIX BAG ONE (12:26)
[2024-08-03] MEDS ORDERED: ROPIVACAINE 5 MG/ML 30 ML VIAL ONE (12:26)
[2024-08-03] MEDS ORDERED: PROPOFOL 10 MG/ML 20 ML VIAL IV ONE (12:26)
[2024-08-03] MEDS ORDERED: fentaNYL (PF) 50 MCG/ML 2 ML AMP ONE (12:26)
[2024-08-03] MEDS ORDERED: GLYCOPYRROLATE 0.2 MG/ML 2 ML VIAL ONE (12:26)
[2024-08-03] MEDS ORDERED: SUCCINYLCHOLINE CHLORIDE 200 MG/10 ML VIAL IV ONE (12:26)
[2024-08-03] MEDS ORDERED: HYDROmorphone (PF) 1 MG/ML ONE (12:26)
[2024-08-03] MEDS ORDERED: DEXAMETHASONE SOD PHOSPHATE 4 MG/ML 1 ML VIAL ONE (12:26)
[2024-08-03] MEDS ORDERED: MIDAZOLAM 2 MG/2 ML VIAL ONE (12:26)
[2024-08-03] MEDS ORDERED: ROCURONIUM 10 MG/ML (5 ML VIAL) IV ONE (12:26)
[2024-08-03] MEDS ORDERED: NEOSTIGMINE 1 MG/ML 10 ML VIAL ONE (12:26)
[2024-08-03] MEDS ORDERED: PHENYLEPHRINE-0.9% NACL SYG 1,000 MCG/10 ML SYRINGE ONE (12:26)
[2024-08-03] MEDS: ceFAZolin 2 GM in DEXTROSE 5% IN WATER 50 ML IVPB PRN (12:30)
[2024-08-03] MEDS: SODIUM CHLORIDE 0.9% 50 ML with ceFAZolin 1,000 MG IV ONE (12:30)
[2024-08-03] MEDS: ROPIVACAINE/EPI/CLONIDINE/KET 50 ML SYRINGE MISCELLANE PRN (13:15)
--- NOTE | 2024-08-03 13:50 | P.ANPRN ---
Procedure Note - Anesthesia - Nerve Block Performed Right Alfredo Single Time Out Performed: Yes Date of Procedure: 08/03/24 Procedure Start Time: 12:18 Procedure Stop Time: 12:30 Location of Patient: PreOp Indication: Acute Post-Operative Pain, Requested by Surgeon Sedation Type: Sedate with meaningful contact maintained Preparation: Sterile Prep Position: Supine Catheter: None Needle Types: Facet Needle Gauge: 20 Ultrasound used to visualize needle placement: Yes Ultrasound used to observe medication spread: Yes Injectate: 0.5% Ropivacaine (see comment for volume) (30 ml + decadron 4 mg) Blood Aspirated: No Pain Paresthesia on Injection Noted: No Resistance on Injection: Normal Image Stored and Saved: Yes Events: Uneventful and Well Tolerated
[2024-08-03] MEDS: LACTATED RINGERS 1,000 ML IV ONE ×2 (14:00→15:02)
[2024-08-03] MEDS ORDERED: NALOXONE 0.4 MG/ML 1 ML VIAL IV PRN (14:36)
[2024-08-03] MEDS ORDERED: MAGNESIUM HYDROXIDE 2,400 MG/30 ML CUP PO PRN (14:36)
[2024-08-03] MEDS ORDERED: HYDROmorphone 0.5 MG/0.5 ML SYRINGE IVP PRN (14:36)
[2024-08-03] MEDS ORDERED: TEMAZEPAM 15 MG CAP PO PRN (14:36)
[2024-08-03] MEDS ORDERED: HYDROmorphone 2 MG/ML 1 ML SYRINGE IVP PRN (14:36)
[2024-08-03] MEDS ORDERED: diazePAM 5 MG TAB PO PRN ×2 (14:36)
[2024-08-03] MEDS ORDERED: HYDROcodone/APAP 5-325MG 1 EACH TAB PO PRN (14:36)
[2024-08-03] MEDS ORDERED: ONDANSETRON 4 MG/2 ML VIAL IVP PRN (14:36)
--- NOTE | 2024-08-03 14:36 | P.OP ---
Date of Procedure: 08/03/24 Preoperative Diagnosis: 1. Severe right hip osteoarthritis versus avascular necrosis 2. Current everyday alcohol use 3. BMI 42.7 Postoperative Diagnosis: Same Procedure(s) Performed: Right direct anterior total hip arthroplasty Implants: 1. [place] Trident II Acetabular Cup, Size #52 2. Emily Insignia Size #4 Femoral Stem, High Offset 3. Biolox delta femoral head, 36 mm, +0 mm neck Anesthesia: GARLANDA, regional Surgeon: Nilo Alba Inspector Poising #1: Florentino Olivares Estimated Blood Loss (ml): 800 IV fluids (ml): 1,000 Pathology: none sent Condition: stable Disposition: PACU Indications for Procedure: I had a long discussion with the patient in the office on the potential risks and complications of an elective total hip replacement through a direct anterior approach. Risks discussed include, but are certainly not limited to, risks from anesthesia, superficial infection requiring local wound care or antibiotics, deep nani-prosthetic joint infection and the treatment required to eradicate infection, intraoperative fracture, postoperative periprosthetic fracture, damage to local blood vessels or nerves particularly the lateral femoral cutaneous nerve, delayed wound healing requiring local wound care or possibly surgical debridement, hip dislocation, leg length discrepancy, soft tissue irritation around the total hip implant such as iliopsoas tendinitis or trochanteric bursitis, wear and osteolysis from the implants, squeaking or audible noises, groin pain, thigh pain, heterotopic ossification, stiffness, aseptic loosening of the implants, dissatisfaction with surgical outcome, need for revision surgery, DVT, PE, swelling of the operative extremity, acute coronary event, stroke, failure to thrive, and possibly loss of life or limb. The patient understands that while these are the most common complications after an elective hip replacement there are certainly other less common complications possible. They were given ample time to ask questions regarding the potential complications of a hip replacement. Following our discussion the patient provided their verbal and written consent to go forward with an elective total hip replacement. Operative Findings: Severe right hip osteoarthritis with complete loss of articular cartilage from the femoral head and partial collapse of the superior weightbearing portion of the femoral head. Description of Procedure: The patient was identified in the preoperative holding area and the correct hip was marked with my initials. I reviewed the procedure and consent with the patient. All of their questions were answered. The patient was then brought back into the operating room by anesthesia. While on the [facility] anesthesia was administered by the anesthesia team. Preoperative antibiotics and tranexamic acid were also given. After the patient was under anesthesia I examined their ankles to determine their preoperative leg length discrepancy. The skin over the anterior aspect of the hip was shaved to remove hair over the site of planned incision. Both feet and ankles were padded with webril and boots for the Mcleod were applied. The patient was then carefully transferred onto the Mcleod table. A perineal post was immediately placed. The arms were placed on arm holders and were well-padded. Both boots were secured to the spars on the Mcleod table. The patient was positioned so that the pelvis was centered over the post. Nonsterile drapes were applied. A timeout was performed identifying the correct patient, operative extremity, and procedure. At this point fluoroscopy was brought in to take preoperative images of the pelvis and operative hip. Using the standing AP pelvis from the office as a template, a comparable image was obtained with fluoroscopy. A metallic bar was used to create a bi-ischial line for use as a reference to leg length adjustments during the procedure. Global offset was also measured on both the operative and nonoperative leg. Fluoroscopy was then brought out and a pre-scrub using a chlorhexidine scrub brush was performed. The operative limb was then prepped and draped in the standard sterile fashion. An anterior longitudinal incision was made lateral and distal to the ASIS. The skin and subcutaneous tissues were incised sharply. The underlying tensor fascia was identified and incised in its midportion. The fascia was dissected free from the underlying muscle and the muscle belly was retracted. A blunt tipped cobra retractor was placed over the superior neck under the muscle fibers of the gluteus minimus. The deep enveloping fascia of the tensor was incised. The anterior leash of vessels were then identified and cauterized. The fascia between the rectus and the capsule was then incised and the pre-capsular fat was excised. A second Cobra was placed inferior to the neck. The interval between the rectus and iliocapsularis and the hip capsule was developed and a retractor was placed carefully over the anterior rim of the acetabulum. A T-shaped anterior capsulotomy was performed. The superior capsular leaflet was left in place in the inferior capsular flap was excised. The Cobra retractors were placed intracapsularly. We then made a femoral neck osteotomy according to preoperative and intraoperative templating and confirmed the level of the osteotomy using fluoroscopic imaging. The femoral head was removed, passed off to the back table, and sized. The superior capsular flap was excised. Retractors were placed circumferentially exposing the acetabulum. We then circumferentially debrided the acetabulum free of labrum and osteophytes. The pulvinar was removed to fully visualize the cotyloid fossa. We then sequentially reamed to achieve peripheral fit and excellent bleeding subchondral bone. The socket was thoroughly irrigated. The acetabular component was impacted into the appropriate position using fluoroscopy to guide version, inclination, and depth of insertion taking care to have a comparable image of the AP pelvis to the standing image taken in the office. An excellent press-fit was achieved and final position was confirmed using fluoroscopy. The press fit was augmented with a bony cancellus dome screw. The liner was then impacted into the socket. Attention was then turned to the femur. The remnant dorsal lateral capsule was excised. The short external rotators were visible and protected. A bone hook was used to confirm appropriate translation of the trochanter away from the acetabulum. The leg was then extended and adducted and the bone hook was used to elevate the femur for broaching. A box osteotome and blunt tipped canal sound was then utilized to gain access to the femoral canal. We then sequentially broached the femur in appropriate anteversion until excellent torsional stability was achieved. The neck cut was brought flush to the trial broach with a calcar planar. A trial neck and head were then placed onto the broach and the hip was atraumatically reduced under direct visualization. External rotation to 90 was performed to assess stability. Fluoroscopy was brought in. An AP and lateral fluoroscopic image of the proximal femur was obtained to assess position and fill of the trial broach. An AP of the pelvis was then obtained and matched to the preoperative image taken. A bi-ischial bar was then placed and measurements were taken to assess changes in length and offset. The hip was then carefully dislocated, the proximal femur was exposed, and the trial implants were removed. The wound and proximal femur was thoroughly irrigated using sterile saline and pulsatile lavage. The final femoral implant was dispensed and gently tapped into place generating an excellent press-fit. The trunnion was cleansed and the final head was tapped into place to engage the Fleming taper. The acetabulum was irrigated and visualized to be free of debris. The hip was carefully reduced. Stability was checked clinically with external rotation to 90 and there was no evidence of instability. Final fluoroscopic images were taken. The wound was then thoroughly irrigated and soaked with a dilute Betadine rinse for 3 minutes. 3 L of sterile saline was irrigated through the wound using pulsatile lavage. Local anesthetic cocktail was injected into the soft tissues around the surgical field. The wound was then closed in layers. A sterile dressing was placed over the surgical incision. The drapes were taken down and the patient was carefully transferred off of the Mcleod table. Following removal of the boots the leg lengths felt acceptable. The patient was then taken to recovery room having tolerated the procedure well. Florentino Olivares PA-C was required as a skilled child nutrition assistant due to the complexity o f surgery for patient positioning, draping, exposure, retraction, closure of wound and application of dressing. PLAN: The patient can weight-bear as tolerated on the operative extremity. 2 doses of postoperative antibiotics. DVT prophylaxis with aspirin 81 mg twice a day based on preoperative risk stratification. Physical therapy for gait training.
[2024-08-03] MEDS: SODIUM CHLORIDE 0.9% 1,000 ML IV SCH (19:11)
[2024-08-03] MEDS: ceFAZolin 3 GM in SODIUM CHLORIDE 0.9% 100 ML IVPB SCH (19:49)
[2024-08-03] MEDS: SENNOSIDES-DOCUSATE SODIUM 1 EACH TAB PO SCH (19:49)
[2024-08-03] MEDS: ASPIRIN 81 MG PO SCH (19:49)
[2024-08-03] MEDS: HYDROcodone/APAP 10-325MG 1 EACH TAB PO PRN (19:50)
[2024-08-03] MEDS: HYDROmorphone 0.5 MG/0.5 ML SYRINGE IVP PRN (21:31)
[2024-08-04] MEDS: hydrOXYzine pamoate 25 MG CAP PO PRN (06:29)
--- NOTE | 2024-08-04 08:04 | P.PN ---
Subjective Progress Note Date: 08/04/24 No acute events overnight. Patient is doing well this morning. The pain in their hip is mild to moderate. They have walked to the bathroom with a walker and assistance. They deny chest pain or shortness of breath. Objective - Vital Signs Vital signs: Vital Signs Temp 98.0 F 08/04/24 01:04 Pulse 85 08/04/24 01:04 Resp 18 08/04/24 01:04 BP 129/81 08/04/24 01:04 Pulse Ox 94 L 08/04/24 01:04 FiO2 Intake & Output 08/03/24 08/04/24 08/04/24 18:59 06:59 18:59 Intake Total 2200 Output Total 300 Balance 1900 Weight 134.9 kg Intake: IV 2200 Output: Urine 300 Other: # Voids 1 - Exam Patient was examined at bedside. Patient is resting comfortably in bed. No apparent distress. They are awake, alert and able to answer questions. The patient has ecchymosis surrounding the right eye from a fall last week. Inspection: The surgical dressing is intact, there is no drainage. There is 2 pinhead amount of strikethrough. The skin surrounding the dressing is free of erythema. There is mild swelling in the operative thigh. Palpation: The operative calf is soft to compression. No calf tenderness. Neurovascular: Operative femoral nerve function is intact. The patient is able to actively plantarflex and dorsiflex their operative ankle and toes. Operative extremity sensation is intact to light touch throughout. Their operative foot appears well perfused, palpable dorsalis pedis pulse Assessment and Plan Assessment: Status post right total hip arthroplasty for severe right hip osteoarthritis Right hip pain Plan: Weight-bear as tolerated on the operative extremity. Use a walker to ambulate. Leave surgical dressing in place. Physical therapy for gait training and mobilization. Disposition: Patient will work with physical therapy and if passed physical therapy may discharge home today. Patient has a history of alcohol use and if there pain is not controlled we discussed staying tonight for pain control.
[2024-08-04 08:36] LABS: Basophils # (A) 0.01 X 10*3/uL (0.00-0.10); Basophils % (A) 0.1 %; Eosinophils # (A) 0 X 10*3/uL (0.04-0.35); Eosinophils % (A) 0 %; HCT 35.7 % (39.6-50.0); HGB 12.3 g/dL (13.0-17.0); Lymphocytes % (A) 8.6 %; MCH 34.2 pg (27.0-32.0); MCHC 34.5 g/dL (32.0-37.0); MCV 99.2 FL (80.0-97.0); Mean Platelet Volume 9.6 FL (9.5-12.2); Monocytes # (A) 0.67 X 10*3/uL (0.20-1.00); Monocytes % (A) 6.4 %; NRBC Per 100 WBC 0 X 10*3/uL (0.00-0.01); Neutrophils # (A) 8.79 X 10*3/uL (1.80-7.70); Neutrophils % (A) 84.4 %; Platelet Count 134 X 10*3/uL (140-440); RDW 11.9 % (11.5-14.5); WBC 10.42 X 10*3/uL (4.50-10.00)
[2024-08-04] MEDS: FAMOTIDINE 20 MG TAB PO SCH (09:11)
[2024-08-04] MEDS: MULTIVITAMINS, THERA 1 EACH TAB PO SCH (09:11)
--- NOTE | 2024-08-04 11:55 | XR ---
Fluoroscopy INDICATION: Pain FINDINGS: Fluoroscopy time: 42.4 seconds. Total dose area product (DAP) in uGy*m?, mGy*cm? (or similar): 6.4648 Images obtained: 10. Images document right hip prosthesis placement IMPRESSION: 1. Documentation of fluoroscopy. [facility], , 08/04/2024 11:52 AM
--- NOTE | 2024-08-04 14:17 | P.CONS ---
History of Present Illness - History of Present Illness Patient is admitted for right hip arthroplasty patient is in mild pain. Well-co ntrolled on pain medications. Patient denied any fever chills nausea vomiting abdominal pain dysuria or coughing. REVIEW OF SYSTEMS: All other systems are negative except those mentioned in the HPI PHYSICAL EXAMINATION: GENERAL: The patient is alert and oriented x3, not in any acute distress. Well developed, well nourished. HEENT: Pupils are round and equally reacting to light. EOMI. No scleral icterus. No conjunctival pallor. Normocephalic, atraumatic. No pharyngeal erythema. No thyromegaly. CARDIOVASCULAR: S1 and S2 present. No murmurs, rubs, or gallops. PULMONARY: Chest is clear to auscultation, no wheezing or crackles. ABDOMEN: Soft, nontender, nondistended, normoactive bowel sounds. No palpable organomegaly. MUSCULOSKELETAL: No joint swelling or deformity. EXTREMITIES: No cyanosis, clubbing, or pedal edema. NEUROLOGICAL: Gross neurological examination did not reveal any focal deficits. SKIN: No rashes. Assessment and plan -Status post right hip arthroplasty pain is really well-controlled DVT prophylaxis as per primary service - Obesity counseling was provided DVT prophylaxis: As per primary service Past Medical History Past Medical History: Hypertension, Liver Disease, Osteoarthritis (OA), Skin Disorder Additional Past Medical History / Comment(s): Fatty liver, kidney stones, childhood asthma-resolved. OA rt hip. Lt Eye injury as teenager. History of Any Multi-Drug Resistant Organisms: None Reported Past Surgical History: Hernia Repair Additional Past Surgical History / Comment(s): hernia repair at , multiple surgeries lt eye r/t hx of eye injury. Past Anesthesia/Blood Transfusion Reactions: No Reported Reaction Additional Past Anesthesia/Blood Transfusion Reaction / Comm: No hx of blood transfusion to date. Past Psychological History: No Psychological Hx Reported Smoking Status: Former smoker Past Alcohol Use History: Daily, Heavy Additional Past Alcohol Use History / Comment(s): 15 to 18 years old, 3-4 cigerrette a day. Drinks alcohol daily- drinks approx 3-4 drinks a day. Drinks beer. Past Drug Use History: None Reported - Past Family History Father Family Medical History: No Reported History Medications and Allergies Home Medications Medication Instructions Recorded Confirmed Type traMADol HCL 50 mg PO Q6H PRN 08/22/23 08/03/24 History Hydrocodone-Acetaminophen 5 - 325 mg PO Q6H PRN 07/29/24 08/03/24 History Allergies Allergy/AdvReac Type Severity Reaction Status Date / Time No Known Allergies Allergy Verified 08/03/24 11:07 Physical Exam Vitals: Vital Signs Temp Pulse Pulse Resp BP Pulse Ox 08/04/24 09:12 95 08/04/24 07:14 98.5 F 83 18 119/77 91 L 08/04/24 01:04 98.0 F 85 18 129/81 94 L 08/03/24 19:11 97.4 F L 93 18 125/79 94 L 08/03/24 17:46 90 160/90 96 08/03/24 17:45 84 155/84 97 08/03/24 16:00 91 16 127/69 96 08/03/24 15:45 85 16 134/83 95 08/03/24 15:30 85 16 126/70 98 08/03/24 15:15 94 16 148/75 95 08/03/24 15:05 100 16 129/84 97 Intake and Output 08/03/24 08/04/24 08/04/24 22:59 06:59 14:59 Intake Total 100 Output Total 300 350 Balance -200 -350 Intake: IV 100 Output: Urine 300 350 Other: # Voids 1 1 Weight 134.9 kg Results CBC & Chem 7: 08/04/24 04:40 Labs: Abnormal Lab Results - Last 24 Hours (Table) 08/04/24 Range/Units 04:40 WBC 10.42 H (4.50-10.00) X 10*3/uL RBC 3.60 L (4.40-5.60) X 10*6/uL Hgb 12.3 L (13.0-17.0) g/dL Hct 35.7 L (39.6-50.0) % MCV 99.2 H (80.0-97.0) FL MCH 34.2 H (27.0-32.0) pg Plt Count 134 L (140-440) X 10*3/uL Immature Gran # 0.05 H (0.00-0.04) X 10*3/uL Neutrophils # 8.79 H (1.80-7.70) X 10*3/uL Eosinophils # 0 L (0.04-0.35) X 10*3/uL
[2024-08-04 14:20] VITALS: BP 163/68; PULSE 89; RESP 17; TEMP 98
--- NOTE | 2024-08-04 16:44 | FL ---
Fluoroscopy INDICATION: Pain FINDINGS: Fluoroscopy time: 42 seconds. Total dose area product (DAP) in uGy*m?, mGy*cm? (or similar): 6.4648 Images obtained: 8. Images document the procedure. IMPRESSION: 1. Documentation of fluoroscopy. [facility], , 08/04/2024 4:41 PM
--- NOTE | 2024-08-04 19:21 | P.DS ---
Providers Attending physician: Nilo Alba Consults: 08/03/24 14:36 Consult Physician Routine Consulting Provider: Julianna Dahl Consult Reason/Comments: post op medical management/ETOH abuse Do you want consulting provider notified?: Yes Primary care physician: Toby Luciano [facility] Course: The patient failed conservative management of their severe right hip osteoarthritis. On 08/03/2024 they presented to the pre op department for their scheduled right direct anterior total hip arthroplasty with Dr. Alba. They tolerated the procedure well. They were transferred to the orthopedic floor. They had no acute events overnight. They were examined at bedside this morning and were doing very well. They were evaluated by physical therapy and it was determined they could discharge home. Their pain was controlled. They were discharged home. Assessment: status post right total hip arthroplasty 08/03/2024 Plan - Discharge Summary Discharge Rx Participant: No New Discharge Prescriptions: No Action traMADol HCL 50 mg PO Q6H PRN PRN Reason: Pain Hydrocodone-Acetaminophen 5 - 325 mg PO Q6H PRN PRN Reason: Pain Discharge Medication List traMADol HCL 50 mg PO Q6H PRN 08/22/23 [History] Hydrocodone-Acetaminophen 5 - 325 mg PO Q6H PRN 07/29/24 [History] Follow up Appointment(s)/Referral(s): Toby Luciano MD [Primary Care Provider] - 08/11/24 11:30 am Nilo Alba MD [Medical Doctor] - 08/17/24 10:30 am (With Florentino) Patient Instructions/Handouts: Anterior Hip Replacement (DC) Activity/Diet/Wound Care/Special Instructions: 1. Weight-bear as tolerated on your operative extremity unless instructed otherwise. Use a walker or other assistive device to ambulate. 2. Leave surgical dressing in place. If your dressing becomes saturated with blood, there is drainage, or the dressing becomes loose please contact the office. 3. It is okay to shower with your surgical dressing, but do not submerge in water (no hot tubs, bath's, swimming etc.) 4. Aspirin 81 mg twice daily for DVT prophylaxis, patient has at home. 5. Patient to resume home pain medication after discharge. 6. Keep all follow-up appointments as scheduled. You will usually be seen in 1-2 weeks following surgery. 7. Please contact the office with any questions or concerns [phone] Discharge Disposition: HOME SELF-CARE
== END 2024-08-04 15:54 | disposition home or self-care (01) ==
LOC: OR 10:44 → EDSTATUS 13:00 → 4SSUR 14:54 → OR 08-04 15:54
PROVIDERS: ATTEND Orthopaedic Surgery
DX: M16.11 Unilateral primary osteoarthritis, right hip (principal); G89.18 Other acute postprocedural pain; E66.9 Obesity, unspecified; I10 Essential (primary) hypertension; Z68.41 Body mass index [BMI] 40.0-44.9, adult; Z87.442 Personal history of urinary calculi; Z87.891 Personal history of nicotine dependence; Z79.899 Other long term (current) drug therapy
CPT/HCPCS: 97161; 64473; 85025; 73501; 27130; C1776; J2250; J1100; J0690 ×3; J2405; J3010; J3490; J1885; J1171